=== PATIENT | female | born 1990 ===

== ENCOUNTER 2021-03-13 11:05 | Emergency (ER) | payer OTHER ==
[~2021-03-13] VITALS: Ht 160 cm; Wt 97.5 kg
[2021-03-13] MEDS ORDERED: JANUMET XR 50-1 EAC1 PO (11:17)
== END 2021-03-13 15:55 | disposition home or self-care (01) ==
LOC: ER 11:05
DX: K29.70 Gastritis, unspecified, without bleeding (principal); E11.9 Type 2 diabetes mellitus without complications

== ENCOUNTER 2021-03-22 09:00 | Outpatient (CLI) | payer OTHER ==
[~2021-03-22 09:00] MED LIST: JANUMET XR 50-1 EAC1 PO
== END 2021-03-22 09:15 | disposition home or self-care (01) ==
LOC: PPH VACUNA 09:00
PROVIDERS: ATTEND Emergency Medicine Pediatric Emergency Medicine
DX: Z23 Encounter for immunization (principal)

== ENCOUNTER 2021-04-13 06:19 | Outpatient (CLI) | payer OTHER | END 2021-04-13 06:20 | disposition home or self-care (01) | LOC: LAB 06:19 | PROVIDERS: ATTEND Surgery | DX: E03.8 Other specified hypothyroidism (principal); D46.4 Refractory anemia, unspecified; E11.9 Type 2 diabetes mellitus without complications; E54 Ascorbic acid deficiency; D51.8 Other vitamin B12 deficiency anemias; B96.81 Helicobacter pylori [H. pylori] as the cause of diseases classified elsewhere ==

== ENCOUNTER 2021-04-13 07:04 | Outpatient (CLI) | payer OTHER | END 2021-04-13 07:07 | disposition home or self-care (01) | LOC: SONOGRAMA 07:04 | PROVIDERS: ATTEND Surgery | DX: K76.0 Fatty (change of) liver, not elsewhere classified (principal) ==

== ENCOUNTER 2021-04-16 06:23 | Outpatient (CLI) | payer OTHER | END 2021-04-16 06:24 | disposition home or self-care (01) | LOC: LAB 06:23 | PROVIDERS: ATTEND Surgery | DX: D64.89 Other specified anemias (principal) ==

== ENCOUNTER 2021-05-28 06:23 | Emergency (ER) | payer OTHER ==
[~2021-05-28] VITALS: Ht 160 cm; Wt 99.8 kg
[2021-05-28] MEDS ORDERED: ZITHROMAX500 MG PO (09:21)
== END 2021-05-28 09:41 | disposition home or self-care (01) ==
LOC: ER 06:23
DX: B34.8 Other viral infections of unspecified site (principal); E11.9 Type 2 diabetes mellitus without complications; Z79.84 Long term (current) use of oral hypoglycemic drugs